=== PATIENT | female | born 1930 | race Caucasian/White ===

== ENCOUNTER → 2017-03-09 | Outpatient (CLI) | payer OTHER, MEDICARE ==
[~2017-03-09] VITALS: Ht 149.9 cm; Wt 67.1 kg
[~2017-03-09] MED LIST: ALDACTONE25 MG PO; ASPIRIN EC81 M1 PO; CALTRATE-600 W1 EACH PO; COLACE100 MG PO; FISH OIL 1,0001 EAC5 PO; HYDROCHLOROTHIA25 M1 PO; LASIX 20 MG TAB20 MG PO; LIDODERM 5%1 PATC1 TRANSDERM; LIDODERM 5%1 PATCH TOP; MIRALAX255 GM PO; MOBIC7.5 MG PO; NAPROSYN500 MG PO; OCUVITE TABLET1 EAC1 PO; OXYCODONE HCL 55 MG PO; OXYCODONE HCL5 M1 PO; OXYCONTIN PO; OXYCONTIN10 M1 PO; OXYCONTIN10 MG PO; PRENATAL COMPL1 EACH PO; PRILOSEC 20 MG20 MG PO; SENOKOT-S1 TA1 PO; VITAMIN D-32000 UNIT PO; VITAMIN D400 UNI1 PO; VOLTAREN GEL 1100 G2 TOP
--- NOTE | ~2017-03-09 | HPC ---
[facility] [place] [address] PAIN MANAGEMENT CONSULTATION Name: GINO GIMENEZ Room #: REG RAFI Simone.#: [id number] Admission: 03/09/17 Attend Phys: Jorgito Rocha MD Discharge: Date of : [birth year] Report #: [id number] THIS REPORT FOR: //name// CC: Klaus Rocha DATE OF SERVICE: 03/09/2017 Followup visit for chronic low back pain with radiculopathy. The patient returns to pain clinic today for a 2-level transforaminal epidural injection. These have been performed intermittently dating back almost 10 or 11 years. We try to be cautious about performing these injections not in a series, but on an as needed basis. She also gets injections prior to major events. She had an injection performed in November prior to a trip to the [facility] and she will now be going to [facility] to attend a wedding of a grandchild. She is hoping to walk down the aisle and the injection will hopefully provide her with the relief necessary to do so. Her last injection provided substantial relief. We will repeat the injection today as before. We reviewed her medications in some detail at last visit. She uses OxyContin 10 mg b.i.d. and oxycodone 5 mg twice a day for breakthrough pain along with Voltaren gel for her shoulders. I renewed those medications for as well. Side effects are well managed. She has some constipation, which is treated easily with [id number]-[id number] laxatives. PHYSICAL EXAMINATION: She is a panda 86-year-old pleasant, alert and oriented. Her blood pressure is 144/63, heart rate 76, BMI 29.9. She is not a fall risk, moves from a sitting to standing position and ambulates with stable gait. She does have a walker and a cane available if needed. She has tenderness across her low back. She has pain that follows the right leg in a radicular pattern all the way to the calf with positive straight leg raising. IMPRESSION: 1. Low back pain with radiculopathy, status post laminectomy, right L4-L5. 2. Management of high risk medication. RECOMMENDATIONS: Repeat 2-level transforaminal epidural injection under fluoroscopic guidance. PROCEDURE: She was taken to the fluoroscopic suite where she was placed prone, skin prepped with ChloraPrep. Skin was anesthetized over the L4-L5 and L5-S1 neural foramen. Triplanar fluoroscopic views were used to help position needles into the neural foramen. Epidurogram achieved both levels with 0.5 mL of omnipaque. This was then followed by 3 mL of 0.5% lidocaine through each needle plus 40 mg of triamcinolone. She tolerated the procedure well. She had a [facility] [address] [place] [address] PAIN MANAGEMENT CONSULTATION Name: GINO GIMENEZ Room #: REG RAFI Lorenzo#: [id number] Admission: 03/09/17 Attend Phys: Jorgito Rocha MD Discharge: Date of : [birth year] Report #: [id number] little bit of weakness in her lower extremity. After the procedure was observed carefully until she was able to bear weight without incident and was discharged. Follow up as needed. I stressed once again the importance of safeguarding these strong medications that she uses for intractable pain. By: 1525 1540 Jorgito Rocha MD /nt
[2017-03-09 10:08] VITALS: BP 144/63
== END | disposition home or self-care (01) ==
LOC: PAIN 06:40
DX: M54.16 Radiculopathy, lumbar region (principal); F11.20 Opioid dependence, uncomplicated; Z98.890 Other specified postprocedural states; Z79.82 Long term (current) use of aspirin; Z88.0 Allergy status to penicillin; Z88.8 Allergy status to other drugs, medicaments and biological substances

== ENCOUNTER → 2017-05-29 | Outpatient (CLI) | payer OTHER, MEDICARE ==
[~2017-05-29] VITALS: Ht 149.9 cm; Wt 69.4 kg
--- NOTE | ~2017-05-29 | HPC ---
[facility] [place] [address] [place] [address] PAIN MANAGEMENT CONSULTATION Name: GINO GIMENEZ Room #: REG FAYESrinivasa Lorenzo#: [id number] Admission: 05/29/17 Attend Phys: Jorgito Rocha MD Discharge: Date of : [birth year] Report #: [id number] THIS REPORT FOR: //name// CC: TIFFANY Rocha DATE OF SERVICE: 05/29/2017 Followup visit for lumbar radiculopathy. The patient returns to pain clinic today for another 2-level transforaminal epidural injection. I performed these injections now for her off and on over the last 10 years, avoiding surgery and also keeping her off of stronger medication for the most part. She uses OxyContin and oxycodone, but we have limited her dose to no more than 30 total mg per day or an ME of 45 underneath the CDC guideline. Although she is 86, she has been on these medicines for years, tolerated some well, has few side effects and she is grateful for the benefit that they provided. I reviewed the available record and she has been on these medications at nearly the same dose since 2007. She has shown no addictive behaviors. She feels that without the medication it would be much more difficult for her to get about and enjoy her life. She was able to go to [place] to attend the wedding of a grandchild and she was thrilled that she was able to walk both down the aisle at the beginning and at the end and enjoy her time there. The injections and the medication play a big role in that. Pain today is typical. It is in her low back. It radiates down her right leg following an L4-L5 and L3-L4 distribution. She scores her pain at a 4 with medication; without, it is 8-9. MEDICATIONS AND ALLERGIES: Reconciled and reviewed. There have been no changes. PHYSICAL EXAMINATION: GENERAL: She is a delightful 86-year-old, sharp and alert. VITAL SIGNS: Blood pressure 160/56, heart rate is 86. BMI is 30.9. MUSCULOSKELETAL: She moves easily independently from a sitting to standing position, walks with a walker. Her gait is stable. She does not appear to be fly risk. She has tenderness and kyphosis across the lumbar spine, where there is limited activity. She has pain in her right knee with osteoarthritis. She intends to have an injection with Dr. Vasquez there. Straight leg raising on the right reproduces a radicular shooting pain into the leg. IMPRESSION: 1. Chronic lumbar radiculopathy, status post laminectomy, right L4-L5 [place] [address] PAIN MANAGEMENT CONSULTATION Name: GINO GIMENEZ Room #: REG RAFI Lorenzo#: [id number] Admission: 05/29/17 Attend Phys: Jorgito Rocha MD Discharge: Date of : [birth year] Report #: [id number] 2. Management of high-risk medication. PLAN: A 2-level transforaminal epidural injection on the right L4-L5 and L5-S1. PROCEDURE: She was taken to the fluoroscopic suite and placed prone. Skin was prepped on the right. Skin was anesthetized over the L4-L5 and L5-S1 neural foramen. Using triplanar fluoroscopic views, I advanced the needle into the neural foramen and 1 mL of Omnipaque was injected. Good spread of dye was observed into the neural foramen at each level. It was then followed at each level by 2 mL of 0.5% lidocaine and 40 mg of triamcinolone. She tolerated the procedure well, was observed for 30 minutes and discharged. Medication renewals were performed today for release at 4 and 8 weeks as well. She now has 3 months of medication. The importance of safeguarding medications for an elderly patient to prevent any diversion in today's climate with the opioid crisis was reviewed. I will see her back in 3 months or so. By: 1510 0139 Jorgito Rocha MD /nt
[2017-05-29 10:55] VITALS: BP 160/56
== END | disposition home or self-care (01) ==
LOC: PAIN 07:21
DX: M54.16 Radiculopathy, lumbar region (principal); Z68.30 Body mass index [BMI] 30.0-30.9, adult; Z98.890 Other specified postprocedural states

== ENCOUNTER → 2017-07-27 | Outpatient (CLI) | payer OTHER, MEDICARE ==
[~2017-07-27] VITALS: Ht 147.3 cm; Wt 65.8 kg
--- NOTE | ~2017-07-27 | HPC ---
[facility] [place] [address] [place] [address] PAIN MANAGEMENT CONSULTATION Name: GINO GIMENEZ Room #: REG Srinivasa Carmen.#: [id number] Admission: 07/27/17 Attend Phys: Jorgito Rocha MD Discharge: Date of : [birth year] Report #: [id number] THIS REPORT FOR: //name// CC: TIFFANY Rocha DATE OF SERVICE: 07/27/2017 Followup visit for lumbar radiculopathy, right lumbosacral distribution. The patient returns to pain clinic today for renewal of medication and also repeat of a 2-level transforaminal injection. She has been receiving transforaminal injections for radiculopathy now for many years. This will be her fourth injection of 2016. This is the typical number of injections she has received over a long period of time. Under terms of an opioid agreement I also provided her with medication, OxyContin 10 mg b.i.d. and oxy IR 5 mg up to twice a day for breakthrough pain. This calculates to a total of 30 mg of hydrocodone, 30 mg of oxycodone or 45 morphine mg equivalents. The most important thing for the patient who benefits from these medicines is that she safeguards them carefully and she will continue to do so. She remains active at 86, but is worried that she is getting more and more debilitated. This has not stopped her from travelling! She [place] between now and the end of the year. PHYSICAL EXAMINATION: GENERAL: She is a sharp 86-year-old pleasant, alert and oriented, moves from sitting to standing position, walks with a walker. VITAL SIGNS: Her blood pressure is 152/59, heart rate 70. MUSCULOSKELETAL: She has tenderness across her low back. There is a small scar there. She has straight leg raising with discomfort located bilaterally, but is worse on the right. IMPRESSION: 1. Chronic lumbar radiculopathy on the right L5-S1, L4-L5 distribution, status post laminectomy. 2. Management of high risk medication. PROCEDURE: Two- level transforaminal epidural injection on the right L4-L5 and L5-S1. DESCRIPTION OF PROCEDURE: The patient was taken to fluoroscopic suite, placed prone, skin prepped with ChloraPrep to the right. Using triplanar fluoroscopic [address] [address] PAIN MANAGEMENT CONSULTATION Name: DILAN GIMENEZSHARONDA Hamilton Room #: REG [facility]#: [id number] Admission: 07/27/17 Attend Phys: Jorgito Rocha MD Discharge: Date of : [birth year] Report #: [id number] views, I advanced the epidural needles 22-gauge 4-1/2 into the neural foramen at L4-L5 and L5-S1. I injected twice Omnipaque to demonstrate spread into the neural foramen. When I have achieved that at each level, I injected each needle with 1.5% lidocaine, 1 mL and 40 mg of triamcinolone. Both needles were removed. She tolerated the procedure well. Total of 80 mg of triamcinolone was used for the injection. She was observed in recovery room for 45 minutes and discharged with a pain score was 0 and a followup visit as needed. Medications were provided for her again with important instructions on safeguarding. <ELECTRONICALLY SIGNED> By: Jorgito Rocha MD 08/02/17 1551 [id number] Jogrito Rocha MD /nt
[2017-07-27 10:12] VITALS: BP 152/59
== END | disposition home or self-care (01) ==
LOC: PAIN 06:37
DX: M54.16 Radiculopathy, lumbar region (principal)

== ENCOUNTER → 2017-11-30 | Outpatient (CLI) | payer OTHER, MEDICARE ==
[~2017-11-30] VITALS: Ht 149.9 cm; Wt 65.1 kg
[~2017-11-30] MED LIST changes: +FOLBIC RF TABL1 EACH PO; +LIDODERM1 EACH TOP; +LINZESS72 MCG PO
--- NOTE | ~2017-11-30 | HPC ---
[facility] [address] [address] PAIN MANAGEMENT CONSULTATION Name: GINO GIMENEZ Room #: REG [facility] Carmen.#: [id number] Admission: 11/30/17 Attend Phys: Jorgito Rocha MD Discharge: Date of : [birth year] Report #: [id number] THIS REPORT FOR: //name// CC: TIFFANY Rocha DATE OF SERVICE: 11/30/2017 DATE OF REGISTRATION: 11/30/2017 Followup visit for chronic right lumbar radiculopathy. The patient returns to pain clinic today with her caregiver. She is doing very well with her. The patient is able to take care of almost all of her activities of daily living, particularly hygiene, dressing and meal preparation. Her caregiver takes her to appointments and assistance around the house with cleaning and others tasks. She is doing well and living independently. She is 87 years old! She is here today for injection. We have provided these injections to keep her pain under control usually no more than 3 injections per year. She has received injections intermittently dating back several years. She received injections 4 times in 2017. This will be her first injection in 2018 and it has been 4 months since her last injection. On physical exam, she is pleasant, alert and oriented, without signs of overmedication or depression or anxiety. She has no evidence of dementia. Her pain score is 4/10. She is able to move independently from sitting to standing position, but does have potential fall risk, using a walker. She has pain across her low back and positive straight leg raising. She is on an opioid agreement with our clinic and we reviewed her medications, OxyContin 10 mg b.i.d. and oxycodone 5/325 two tablets daily for breakthrough pain. This is a total of 30 oxycodone mg a day, which equates to 45 morphine mg equivalents. IMPRESSION: Chronic back pain with radiculopathy, post-laminectomy. Pain is all on the right side and has involved the L4-L5 nerve roots. As she has responded beautifully to 2 level transforaminal injections at L4-L5 and L5-S1, we will continue the same today. PROCEDURE: She was taken to fluoroscopic suite, she was placed prone, skin was prepped with ChloraPrep. Skin was anesthetized over the L4-L5 and L5-S1 neural foramen. Using triplanar fluoroscopic views, I advanced needle into the neural foramen. There was no blood or CSF aspirated. 1 mL of Omnipaque injected demonstrated excellent spread through the epidural space. Through each needle, I injected 1.5 mL of 0.5% lidocaine mixed with 40 mg triamcinolone. She tolerated the procedure well. Pain was reduced in the [place] [address] PAIN MANAGEMENT CONSULTATION Name: GINO GIMENEZ Room #: REG RAFI Lorenzo#: [id number] Admission: 11/30/17 Attend Phys: Jorgito Rocha MD Discharge: Date of : [birth year] Report #: [id number] discharged. Medications were provided for her as described above and I will see her back as needed for medication in 3 months or when another injection is necessary. <ELECTRONICALLY SIGNED> By: Jorgito Rocha MD 12/25/17 1408 [id number] [id number] Jorgito Rocha MD /nt
[2017-11-30 11:43] VITALS: BP 146/71
== END | disposition home or self-care (01) ==
LOC: PAIN 10-19 12:54
DX: M54.16 Radiculopathy, lumbar region (principal); M96.1 Postlaminectomy syndrome, not elsewhere classified; Z79.899 Other long term (current) drug therapy; G89.29 Other chronic pain

== ENCOUNTER → 2018-03-08 | Outpatient (CLI) | payer OTHER, MEDICARE ==
[~2018-03-08] VITALS: Ht 147.3 cm; Wt 66.3 kg
--- NOTE | ~2018-03-08 | HPC ---
[facility] [address] [place] [address] PAIN MANAGEMENT CONSULTATION Name: GINO GIMENEZ Room #: REG [facility] [id number] Admission: 03/08/18 Attend Phys: Jorgito Rocha MD Discharge: Date of : [birth year] Report #: [id number] THIS REPORT FOR: //name// CC: TIFFANY MIX Physician staff Jorgito Rocha DATE OF SERVICE: 03/08/2018 Followup visit for low back pain with radiculopathy, post-laminectomy syndrome. The patient returns to the Pain Clinic for an epidural injection. I provided these for her 3 times a year with good improvement. She reports oftentimes up to 70-80% pain relief. Pain score drops fairly dramatically in the weeks following the injection. Pain score today is a 4. It is a sore, aching tenderness in her tailbone, radiating into both legs, worse on the right than the left. We have used a transforaminal approach, which has been successful. I used 2 levels, L4-L5 and L5-S1. Medication were reviewed and reconciled from the electronic medical record. I do have her on our opioid agreement, which has been signed and we discussed the CDC guidelines. She uses her medications carefully and safeguarded and watched over also by her caregiver, who is with her today in the appointment. She has not fallen in the last 3 months and has not a fall risk, although she does use a walker. She sees Dr. Mindy Bonilla for edema and has aortic stenosis. SOCIAL HISTORY: She denies use of tobacco and alcohol. PHYSICAL EXAMINATION: She is a panda, sharp 87-year-old, moves from sitting to standing position, ambulates without too much difficulty. She has pain across the low back with forward flexion and extension. She needs a walker for stability. She had some trouble getting up on to the treatment table today for the first time. She says there was pain and some weakness in climbing on to the step stool. Deep tendon reflexes are diminished throughout the lower extremities. She has tenderness across her low back where her scar is from previous surgery. IMPRESSION: Post-laminectomy syndrome with radiculopathy. PROCEDURE: Two-level transforaminal L5-S1 and L4-L5 on the right under fluoroscopic guidance. [address] [address] PAIN MANAGEMENT CONSULTATION Name: GINO GIMENEZ Room #: REG [facility]#: [id number] Admission: 03/08/18 Attend Phys: Jorgito Rocha MD Discharge: Date of : [birth year] Report #: [id number] I also provided her with medication for her chronic pain and lumbar spondylosis. The low back pain is aided quite a bit by the medication. I renewed all of her opioid medications under terms of the agreement. Please see electronic medical record. DESCRIPTION OF PROCEDURE: The patient was taken to the fluoroscopy suite, placed prone, skin prepped with ChloraPrep. Skin anesthetized over the L4-L5 and L5-S1 neural foramen. Using triplanar fluoroscopic views, I advanced the needle into the neural foramen. 1 mL of Omnipaque was injected with excellent spread of dye observed at each level. This was then followed at each level by 3 mL of 0.5% lidocaine mixed with 40 mg of triamcinolone. She tolerated the procedure well and was observed for 45 minutes and discharged. Followup visit planned in the Pain Clinic in roughly 3 months. I renewed the CDC guidelines with her, talked again about safeguarding medication before discharge. She was given oxycodone IR 5 mg to be taken twice a day for breakthrough pain. Her total daily dose of oxycodone maximum is 30, which equates with 45 MME under the CDC guideline recommendation of 50. She will continue to manage her constipation with Linzess. No other changes in medication today. By: [id number] Jorgito Rocha MD /nt
[2018-03-08 11:25] VITALS: BP 149/65
== END | disposition home or self-care (01) ==
LOC: PAIN 06:59
DX: M54.16 Radiculopathy, lumbar region (principal); M96.1 Postlaminectomy syndrome, not elsewhere classified; G89.29 Other chronic pain; Z88.0 Allergy status to penicillin; Z88.2 Allergy status to sulfonamides; Z88.8 Allergy status to other drugs, medicaments and biological substances; Z79.82 Long term (current) use of aspirin; Z79.899 Other long term (current) drug therapy; Z79.891 Long term (current) use of opiate analgesic

== ENCOUNTER → 2018-06-07 | Outpatient (CLI) | payer OTHER, MEDICARE ==
[~2018-06-07] VITALS: Ht 149.9 cm; Wt 65.3 kg
--- NOTE | ~2018-06-07 | HPC ---
[facility] [address] PAIN MANAGEMENT CONSULTATION Name: GINO GIMENEZ Room #: [facility] [id number] Admission: 06/07/18 Attend Phys: Jorgito Rocha MD Discharge: Date of : [birth year] Report #: [id number] THIS REPORT FOR: //name// CC: TIFFANY MIX MD Physician staff Jorgito Rocha DATE OF SERVICE: 06/07/2018 Followup visit for chronic low back pain with recent fall and right-sided sacroiliac joint and hip pain. The patient was in the clinic today with family and her daughter listening in over the phone. She has recently fallen. She fell landing on her left side, but has had more increasing pain in the right sacroiliac joint, hip and along the lateral thigh. The fall was fairly severe, but no x-rays were taken. It does not appear that she has suffered any fractures. She has been able to bear weight, but only with a walker. She is definitely a fall risk. She was last seen on 03/08/2018 at which time I performed a 2-level transforaminal epidural injection. This has helped with her post-laminectomy radicular symptoms over many years. She has always received relief that lasts for an extended period of time. She was in consideration of an injection today, but we ended up spending about 30 minutes reassuring her about her other injuries. MEDICATIONS: Reviewed and reconciled. PQRS: Shows that my patient has osteoarthritis of the knees. No rheumatoid arthritis. Her BMI is 29. Blood pressure 123/47, heart rate 71, respirations 16. Pain score without medication is 10, with medication she can reduce this to a very manageable level and is able to function through the day. She is a fall risk, not fallen within the last 1 week. She is on no blood thinners. She is treated for hypertension. She is on an opioid agreement for the medications that I provided, which include OxyContin 10 mg twice daily. Voltaren gel has also been utilized and prescribed and I give her Flector patches today for use for short term use. She is at low risk for addiction. Does not smoke nor use alcohol. PHYSICAL EXAMINATION: She is in his wheelchair. She is pleasant, alert and oriented. She is little worried because of her recent fall. Blood pressure is 123/47, heart rate 71, respirations 16, O2 sat is 100%. She has BMI of 29.1. She moves from sitting to standing, but ambulates with a very slow shuffling [address] [address] PAIN MANAGEMENT CONSULTATION Name: GINO GIMENEZ Room #: REG [facility]#: [id number] Admission: 06/07/18 Attend Phys: Jorgito Rocha MD Discharge: Date of : [birth year] Report #: [id number] gait. She appears unsteady on her feet when turning. Examination of the spine reveals no tenderness high, but in the lumbosacral segment she is tender across the iliac crest region. She is exquisitely tender over the right sacroiliac joint and along the area of the greater trochanter. She has tenderness also in the gluteal region. She has no pain with hip flexion and extension of the leg. No weakness noted. She has some decreased sensation in the left L4-L5 distribution. This is an area where we treated her with epidural injections successfully. IMPRESSION: 1. Chronic low back pain with radiculopathy, post-laminectomy syndrome. 2. Recent fall. 3. Myofascial pain and possible sacroiliac joint dysfunction or sacroiliac joint mediated pain related to the fall. 4. Management of high risk medications under terms of written opioid agreement. We reviewed her medication use with precautions and precaution about safeguarding medication as best possible. PLAN: After much discussion, we elected to hold off on an injection today. We will consider injection in the next 1-2 weeks if she is not improving from her fall. By: [id number] 2038 Jorgito Rocha MD /nt
[2018-06-07 14:21] VITALS: BP 123/47
== END ==
LOC: PAIN 07:11
DX: M54.16 Radiculopathy, lumbar region (principal); M96.1 Postlaminectomy syndrome, not elsewhere classified; M79.1 Myalgia; W19.XXXA Unspecified fall, initial encounter; Z79.891 Long term (current) use of opiate analgesic

== ENCOUNTER → 2018-07-09 | Outpatient (CLI) | payer OTHER, MEDICARE ==
[~2018-07-09] VITALS: Ht 149.9 cm; Wt 67.1 kg
--- NOTE | ~2018-07-09 | HPC ---
[facility] [place] [address] PAIN MANAGEMENT CONSULTATION Name: GINO GIMENEZ Room #: REG [facility] Carmen.#: [id number] Admission: 07/09/18 Attend Phys: Jorgito Rocha MD Discharge: Date of : [birth year] Report #: [id number] THIS REPORT FOR: //name// CC: TIFFANY AVALOS MD Physician staff Jorgito Rocha DATE OF SERVICE: 07/09/2018 Followup visit for chronic low back pain with radiculopathy. The patient returns to Pain Clinic today for her 2-level transforaminal epidural injection. Her last injection was over 4 months ago. This will be her third injection in 2018. We have utilized the transforaminal epidural injections 3-4 times a year along with medication to manage her chronic pain quite effectively. She remains sharp and very independent. Today, she reports her pain intensity is 7/10. PQRS REVIEW: Shows that she has: 1. 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 She follows with Dr. Park. 2. She is small with a BMI of 29.9. 3. Her vital signs are stable. Blood pressure 157/44, heart rate 71. 4. Pain intensity is 7/10. 5. Fall risk: No falls in the last 3 months. She uses a walker and is cautious. 6. She is not on a blood thinner. 7. She is under the treatment for hypertension by Dr. Avalos. 8. She has signed an opioid agreement and has completed an opioid risk tool and is at low risk for addiction. 9. She denies use of tobacco, but drinks alcohol on social occasions. Current medications provided through our clinic include OxyContin 10 mg b.i.d., which she uses effectively without side effect and OxyIR 5 mg for breakthrough pain. Her maximum daily MME is 45. She also uses diclofenac topically; however, the Flector patches are no longer covered and extremely expensive. We talked about using diclofenac gel and this can be ordered and paid for out of pocket through [employer] at about 28-30 dollars per month. PHYSICAL EXAMINATION: Reveals a panda 87-year-old, moves from sitting to standing position, walks cautiously with a walker. She has limited range of motion of the lumbar spine and tenderness across the [place]os[place] [address] PAIN MANAGEMENT CONSULTATION Name: GINO GIMENEZ Room #: REG [facility]#: [id number] Admission: 07/09/18 Attend Phys: Jorgito Rocha MD Discharge: Date of : [birth year] Report #: [id number] there is a small scar. Straight leg raising is mildly positive bilaterally reproducing pain into the L4-L5 distribution, mostly on the right. IMPRESSION: 1. Chronic low back pain with radiculopathy in the right L4-L5. 2. Post-laminectomy syndrome. 3. Management of high risk medications under terms of written opioid agreement. She does not need medication today. PROCEDURE: Two-level transforaminal epidural injection under fluoroscopic guidance. PROCEDURE IN DETAIL: She was taken to fluoroscopic suite, placed prone, skin prepped with ChloraPrep. Skin anesthetized over first the L4-L5 and then the L5-S1 neural foramen. Using triplanar fluoroscopic views, I advanced the needle nicely into the neural foramen. 1 mL of Omnipaque was injected and good spread of dye was observed into the epidural space. I then followed each with an injection of 2 mL of 0.5% lidocaine mixed with 40 mg of triamcinolone at each level. She tolerated the procedure well. Pain was reduced and she was able to ambulate easily out of the clinic without complication. Followup visit is planned for medication in 1-2 months, injections no more than 3-4 per year. She is grateful for the relief. By: [id number] Jorgito Rocha MD /nt
[2018-07-09 10:50] VITALS: BP 157/44
== END | disposition home or self-care (01) ==
LOC: PAIN 07:13
DX: M54.16 Radiculopathy, lumbar region (principal); G89.29 Other chronic pain; M96.1 Postlaminectomy syndrome, not elsewhere classified; M17.12 Unilateral primary osteoarthritis, left knee; I10 Essential (primary) hypertension; Z79.891 Long term (current) use of opiate analgesic; Z88.0 Allergy status to penicillin; Z88.2 Allergy status to sulfonamides; Z88.8 Allergy status to other drugs, medicaments and biological substances; Z79.899 Other long term (current) drug therapy; Z79.82 Long term (current) use of aspirin

== ENCOUNTER → 2018-09-20 | Outpatient (CLI) | payer OTHER, MEDICARE ==
[~2018-09-20] VITALS: Ht 149.9 cm; Wt 66.7 kg
[~2018-09-20] MED LIST changes: +LIDODERM1 EACH TRANSDERM; +MOVANTIK25 MG PO
[2018-09-20 10:45] VITALS: BP 116/53
--- NOTE | 2018-09-20 10:50 | NUR ---
Pain Clinic Assessment: 1. History of Osteoarthritis: KNEES History of Rheumatoid Arthritis: Not Applicable 2. Height: 4 ft. 11 in. 149.9 cm. Weight: 147.0 lb. oz. 66.679 kg. Patient's BMI: 29.7 3. Vital Signs: BP: 116/53 Pulse: 75 Resp: 15 Temp: 02 Sat: 95 ECG Mon: 4. Pain Intensity: 2 5. Fall Risk: Dizziness: N Needs help standing or walking: Y Fallen in the last 3 months: N Fall risk comments: USES WALKER 6. Patient on Blood Thinner: None 7. History of Hypertension: Y 8. Opioid Therapy greater than 6 weeks: Y Opiate Contract Signed: 04/07/16 9. Risk Assessment Tool Provided: low 10. Functional Assessment Tool: 11. Recreational Drug Use: Never Drug Type: Tobacco Use: Never Smoker Tobacco Type: Amount or Packs/day: How Many Years: Alcohol Use: Yes Frequency: Quant:
--- NOTE | 2018-09-21 07:26 | HPC ---
[facility] [place] [address] [place] [address] PAIN MANAGEMENT CONSULTATION Name: GINO GIMENEZ Room #: REG [facility] Lorenzo#: [id number] Admission: 09/20/18 Attend Phys: Maylin Luna Discharge: Date of : [birth year] Report #: [id number] THIS REPORT FOR: //name// CC: Maylin MIX Physician staff DATE OF SERVICE: 09/20/2018 CHIEF COMPLAINT: Chronic low back pain with radiculopathy. HISTORY OF PRESENT ILLNESS: The patient returns to the pain clinic today for a refill of her medications. She tells me that her pain score is 2/10 when she does take her medication. She can definitely tell when they have worn off and her pain does increase. She finds that they are very helpful in keeping her active, though she does complain of significant constipation. She tells me that she has tried several medicines in the past and her Linzess, which she has been using to treat it has been getting very expensive. She is wondering if we had an alternative. The patient also would like an injection, that Dr. Rocha gives her right transforaminals. She tells me that they are very helpful in controlling her pain. Her last one was in June and has slowly worn off. She does get significant relief from the injections, greater than 50% now for 2-1/2 months. The patient would just like a refill of her medications today. ALLERGIES: PENICILLIN, SULFA AND MORPHINE. CURRENT LIST OF MEDICATIONS: Lidoderm patch, OxyIR 5 mg, OxyContin 10 mg twice a day, Voltaren gel up to 4 times a day as needed, Linzess 72 mcg daily, Folbic tablet daily, Lasix 40 mg daily, Colace twice a day, Senokot at bedtime, Prilosec 20 mg daily, vitamin D3 daily, aspirin 81 mg every other day and Caltrate 600 with vitamin D daily. PQRS: 1. The patient has a history of osteoarthritis in her knees and her back. She denies rheumatoid arthritis. 2. Height is 4 feet 11 inches, weight is 147, BMI is 29.7. 3. Vital signs: Blood pressure 116/53, pulse is 75, respirations 14, oxygen sat is 95. 4. Pain score is 2. Fall risk, she denies dizziness, does not need help walking and standing, has not fallen in the last 3 months, but does use a walker. 5. The patient is not on any blood thinners and does take medicines for hypertension. 6. Her opioid therapy is greater than 6 weeks, therefore an opioid signed contract is on the chart. 7. Her risk assessment tool is low and her functional assessment is 29/70. [address] [address] PAIN MANAGEMENT CONSULTATION Name: GINO GIMENEZ Room #: REG [facility] Lorenzo#: [id number] Admission: 09/20/18 Attend Phys: Maylin Luna Discharge: Date of : [birth year] Report #: [id number] 8. Recreational drug use, the patient denies. She does not smoke and she occasionally drinks alcohol. Prescription monitoring system shows that she is filling her medications from Dr. Rocha. There is a drug screen that has been done in the past year on this patient. The patient tells me that she also safeguards her medications. PHYSICAL EXAMINATION: GENERAL: This is a very pleasant 88-year-old female that appears her stated age. She is well-developed, well-nourished. She is alert and orientated and her affect is appropriate. HEENT: Normocephalic, atraumatic. Extraocular eye muscles are intact. Mucous membranes are moist. Hearing is adequate. NECK: No JVD or adenopathy. MUSCULOSKELETAL: She has limited range of motion in her lumbar spine and tenderness in her lumbosacral segment, worse on the left area of her lumbar at the L4-L5 area. Straight leg raising is positive bilateral producing pain in the L4-L5 distribution. The patient rises slowly from sitting to standing using arm rest to stand. Lower extremity strength judged to be 4/5 bilaterally in all major muscle groups. The patient uses a walker at all times. IMPRESSION: 1. Chronic low back pain with radiculopathy in the right L4-L5. 2. Post-laminectomy syndrome. 3. Opioid-induced constipation. 4. Management of high risk medications under terms of written opioid agreement. We reviewed the fact that opiate medications are being used to provide analgesia adequate to support activities of daily living, not attempting to achieve a specific pain score on the 0-10 Visual Analog Scale. The current opiate medications are providing sufficient analgesia to allow the patient to participate in activities of daily living. The patient is not exhibiting any aberrant behavior suggestive of drug diversion. The patient is not having any adverse reactions to medications. The patient is not suffering from daytime somnolence or mental acuity changes. The patient is managing opiate-induced constipation with appropriate oioj-adw-aozdtwz agents and dietary considerations. The patient was counseled on concern for caution with operating a motor vehicle while using opiate medications. A physical exam was performed and the patient's functional status was evaluated. All patients with back pain were advised against the bed rest greater than 4 days and were advised to return to normal activities. Pain score assessment was noted and the treatment plan was reviewed with the patient. All current medications, both prescribed and OTC were reviewed and reconciled on the electronic medical record. Tobacco screening was accomplished and smoking cessation was advised when indicated. BMI was noted and diet/exercise modification was recommended for all patients following outside normal [facility] [address] [address] PAIN MANAGEMENT CONSULTATION Name: GINO GIMENEZ Room #: REG [facility].#: [id number] Admission: 09/20/18 Attend Phys: Maylin Luna Discharge: Date of : [birth year] Report #: [id number] parameters. I reviewed with the patient today their responsibilities to safeguard prescription medications, reviewed their responsibility to utilize medications only as prescribed by the physician. They are to seek and receive pain medications only from 1 physician group ( [facility]). They are to use 1 pharmacy and keep the clinic informed if they change pharmacies. Their responsibilities include making followup visits in a timely fashion and to avoid abrupt discontinuation of medication usage. Their responsibilities further include bringing their medications (bottles from the pharmacy with residual pills) to the visit for possible confirmation of pill counts and the patient understands it is their responsibility to submit to random drug screens to ensure both that the medications prescribed are present, and that no other controlled substances are present. All prescriptions provided today were generated electronically. PLAN: 1. Treatment options were discussed with the patient today. She is in need of a refill of her current medications. Scripts given for her OxyContin 10 mg twice a day, #60 with refills today, 4-week and 8-week; OxyIR 5 mg, #60, to be released 4 and 8-week as well; Lidoderm patch, #30 with 5 additional refills and Movantik 25 mg #30 with 5 additional refills. 2. We discussed the options for an injection. The patient tells me that her transforaminal injection has worn off that she had received in June and would like another one. The patient tells me that she gets good relief from those injections. Appointment made for 09/[address] Rocha to repeat that injection. 3. We discussed the patient's constipation. 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 She has been on opioids for years, has tried Colace, Senokot, Linzess, MiraLax, Dulcolax. The Linzess had been helpful, but the cost is more than $200 a month and the patient feels like she cannot afford that on a monthly basis any longer. We will try Movantik 25 mg for her. Unfortunately, we did not have samples to give her, but a script was given for her for a trial of this medication to try to help with her constipation issues. 4. The patient will be seen next week for her injection and then in 3 months' time period again for her medications as needed. The patient is agreeable with this plan of care. 5. The patient is seen in collaboration today with Dr. Jorgito Rocha. <ELECTRONICALLY SIGNED> By: Maylin Luna 09/21/18 0726 [id number] Maylin Luna /nt
== END ==
LOC: PAIN 07:53
DX: M54.16 Radiculopathy, lumbar region (principal); G89.29 Other chronic pain; M96.1 Postlaminectomy syndrome, not elsewhere classified; Z79.891 Long term (current) use of opiate analgesic

== ENCOUNTER → 2018-10-11 | Outpatient (CLI) | payer OTHER, MEDICARE ==
[~2018-10-11] VITALS: Ht 149.9 cm; Wt 67.9 kg
--- NOTE | ~2018-10-11 | HPC ---
[facility] [address] [address] PAIN MANAGEMENT CONSULTATION Name: GINO GIMENEZ [id number] Admission: 10/11/18 Attend Phys: Jorgito Rocha MD Discharge: Date of : [birth year] Report #: [id number] THIS REPORT FOR: //name// CC: TIFFANY Avalos MD Physician staff Jorgito Rocha DATE OF SERVICE: 10/11/2018 Followup visit for chronic low back pain with radiculopathy. The patient returns to clinic today and has had some changing pain. She rode a stationary bicycle using the arm movements as well for 10 minutes last week. Shortly thereafter she began experiencing pain localized over the sacroiliac joint as well as pain that radiates down her left leg. She would like to continue with physical therapy, but wanted some direction. I think the bicycle is fine. I think she should start slower with fewer minutes and she should probably avoid the use of the back and forth arm movements. She does not have a lot of rotational movement around her lumbar spine and I do not think she is going to gain it through physical therapy. She can use the therapy to help gain strength and also to improve her energy and vitality. She should avoid injuring herself with the exercise. She is on an opioid agreement with our clinic and we provide her with OxyContin 10 mg twice daily and she uses oxycodone for breakthrough pain when the pain is severe one tablet twice a day. She has no significant side effects other than constipation, which has been managed with medication. PHYSICAL EXAMINATION: Today, she is pleasant female, moves from sitting to standing position and walks with antalgic features. She has pain across the low back. She has tenderness to the right. She has straight leg raising on the right reproduces pain into the leg consistent with her chronic radicular symptoms. Pain follows L5 and L4 mostly into the anterior thigh. New findings on her physical exam today include tenderness over the right sacroiliac joint. She has a positive JOAN test. The tenderness is fairly exquisite located in the lower pole of the joint. IMPRESSION: 1. Chronic back pain with radiculopathy, right L4-L5. 2. Post-laminectomy syndrome. 3. Opioid-induced constipation. 4. Right sacroiliac joint following extensive exercise. [address] [address] PAIN MANAGEMENT CONSULTATION Name: GINO GIMENEZ Room #: REG [facility] Bj#: [id number] Admission: 10/11/18 Attend Phys: Jorgito Rocha MD Discharge: Date of : [birth year] Report #: [id number] PLAN: 1. Sacroiliac joint on the right under fluoroscopic guidance with 40 mg of triamcinolone. 2. A 2-level transforaminal epidural injection at L4-L5 and L5-S1 using 20 mg of triamcinolone and 0.5% lidocaine at each level. PROCEDURE: 1. Sacroiliac joint injection. She was taken to fluoroscopic suite, placed prone, skin prepped with ChloraPrep. Skin anesthetized over the right sacroiliac joint. A 22-gauge needle was advanced in the posterior inferior capsule and 1 mL of Omnipaque injected to demonstrate a ragged arthrogram. 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 This was then followed by 2 mL of 0.5% lidocaine mixed with 40 mg of triamcinolone. Needle was removed. She was then repositioned, the C-arm was repositioned as well. Using triplanar fluoroscopic views after prepping the area, I anesthetized the skin and placed 2 needles within the neural foramen. 1 mL of Omnipaque injected through each needle. Good spread of dye was observed along the nerve root and extending slightly into the neural foramen and epidural space. This was followed by 1.5 mL of 0.5% lidocaine and 20 mg of triamcinolone at each level. She tolerated the procedures well. She was observed in the recovery room for 30 minutes and was discharged with improvement in pain score. Follow up as needed. No new medications were written on this visit. She has been seen previously separately for medication management. By: [id number] Jorgito Rocha MD /nt
[2018-10-11 12:54] VITALS: BP 156/63
--- NOTE | 2018-10-11 13:06 | NUR ---
Pain Clinic Assessment: 1. History of Osteoarthritis: KNEES History of Rheumatoid Arthritis: Not Applicable 2. Height: 4 ft. 11 in. 149.9 cm. Weight: 149.6 lb. oz. 67.858 kg. Patient's BMI: 30.2 3. Vital Signs: BP: 156/63 Pulse: 74 Resp: 16 Temp: 02 Sat: 98 ECG Mon: 4. Pain Intensity: 2-3 5. Fall Risk: Dizziness: N Needs help standing or walking: N Fallen in the last 3 months: N Fall risk comments: USES WALKER 6. Patient on Blood Thinner: None 7. History of Hypertension: Y 8. Opioid Therapy greater than 6 weeks: Y Opiate Contract Signed: 04/07/16 9. Risk Assessment Tool Provided: low 10. Functional Assessment Tool: 11. Recreational Drug Use: Never Drug Type: Tobacco Use: Never Smoker Tobacco Type: Amount or Packs/day: How Many Years: Alcohol Use: Yes Frequency: Special Occasions Quant: 1-2
== END | disposition home or self-care (01) ==
LOC: PAIN 07:15
DX: M54.16 Radiculopathy, lumbar region (principal); M53.3 Sacrococcygeal disorders, not elsewhere classified; G89.29 Other chronic pain; M96.1 Postlaminectomy syndrome, not elsewhere classified; K59.09 Other constipation; Z88.0 Allergy status to penicillin; Z88.2 Allergy status to sulfonamides; Z88.8 Allergy status to other drugs, medicaments and biological substances; Z79.82 Long term (current) use of aspirin; Z79.899 Other long term (current) drug therapy; Z79.891 Long term (current) use of opiate analgesic; Z98.890 Other specified postprocedural states
CPT/HCPCS: 64483; 64484; G0260

== ENCOUNTER → 2018-12-24 | Outpatient (CLI) | payer OTHER, MEDICARE ==
[~2018-12-24] VITALS: Ht 149.9 cm; Wt 64.2 kg
--- NOTE | ~2018-12-24 | HPC ---
[facility] [address] [place] [address] PAIN MANAGEMENT CONSULTATION Name: GINO GIMENEZ [facility] [id number] Admission: 12/24/18 ������������������ Attend Phys: Jorgito Rocha MD Discharge: ������������������ Date of : [birth year] Report #: [id number] THIS REPORT FOR: //name// CC: TIFFANY Avalos MD Physician staff Jorgito Rocha DATE OF SERVICE: 12/24/2018 Followup visit for chronic low back pain with right lumbar radiculopathy and sacroiliitis. The patient returns to pain clinic today in a 3-month followup. She had a really nice response to the injection performed at last visit. I provided about 30-40 mg of triamcinolone into each of both the L4-L5 and the L5-S1 neural foramen as well as fluoroscopically guided sacroiliac joint. She said that she had excellent pain relief for several weeks. The pain is now returning and she would like to repeat the injection. We provide injections for her about 4 times a year. At last visit, I had written for physical therapy with bicycle beginning with very slow RPMs, but she was unable to make headway with that. Today, we discussed importance of walking. She takes her meals 3 times a day by walking to the dining room. She is also on her feet multiple times for other events including playing bridge! She is remarkably bright for 88 years of age and still plays a mean hand of bridge. When the pain becomes severe this affects all of her activities, both physical and mental, and she is here today for an injection. She is opioid tolerant and has been on opioid medication for over 10 years, tolerating it very well. She uses oxycodone and OxyContin. Her average daily MME is 45. She denies side effect other than constipation and has found Mobic to be quite helpful for the constipation that she has. She is grateful for the pain relief and carefully safeguards her medication. She has a caregiver who echos these issues as well. Additional PQRS issues: She is a fall risk and uses a walker, but has not fallen in the last 3 months. She denies use of tobacco or alcohol. She is on no blood thinning medications. All medications were reviewed and reconciled. She takes Lasix, which I presume is for mild heart failure. She denies shortness of breath or chest pain. All medications have been reviewed and reconciled. She is not hypertensive. PHYSICAL EXAMINATION: She is a panda 88-year-old. Blood pressure 159/75, [address] [address] PAIN MANAGEMENT CONSULTATION Name: GINO GIMENEZ Room #: REG [facility]#: [id number] Admission: 12/24/18 ������������������ Attend Phys: Jorgito Rocha MD Discharge: ������������������ Date of : [birth year] Report #: [id number] heart rate is 73, BMI 28.6. She can independently move from sitting to standing. She uses a walker mostly for balance, does not lean heavily upon it. She can walk the length of the hallway and back without shortness of breath, dyspnea; however, she has pain radiating into the right hip and down the right leg in a dermatomal distribution. She has exquisite tenderness over the sacroiliac joint on the right. This is worsened with flexion, extension and she has a positive JOAN. IMPRESSION: 1. Chronic low back pain with radiculopathy on the right involving L5-S1 and L4-L5. 2. Post-laminectomy syndrome. 3. Opioid-induced constipation, well treated with Movantik. 4. Right sacroiliac inflammation with sacroiliitis. 5. Management of high risk medications under terms of written opioid agreement. PLAN: 1. I renewed her oxycodone with important instructions on safeguarding. There are no unexpected entries in the prescription drug monitoring program information. 2. Transforaminal epidural injection at L4-L5 and L5-S1 on the right and right sacroiliac injection under fluoroscopic guidance. PROCEDURE: She was taken to fluoroscopic suite. She was placed prone, skin prepped with ChloraPrep. The skin anesthetized first over the L4-L5 and then L5-S1 neural foramen. Using triplanar fluoroscopic views, I advanced the needle into the neural foramen. A 0.25 mL of Omnipaque was injected into the upper needle and good epidurogram was achieved. I had to reposition the needle 3 times due to vascular uptake in the L5-S1, but then obtained good spread along the L5 nerve root. I injected each needle with about 35 mg of triamcinolone along with 1.5 mL of 0.5% lidocaine. Harrison were removed. The patient was repositioned as well as the C-arm. Skin was anesthetized over the right sacroiliac joint. A 22-gauge Tuohy epidural needle was advanced into the sacroiliac joint using radiographic guidance. After negative aspiration, I injected a total of 25 mg of triamcinolone along with 2 mL of 0.5% lidocaine. She tolerated the procedure well and was taken to the recovery room for observation. Her pain score was 0 at discharge. Follow up as needed. Medications renewed. ��������������������������������������������� ���������������������������������������� By: ��������������������������������������������� [id number] Jorgito Rocha MD /nt
[2018-12-24 10:23] VITALS: BP 159/75
--- NOTE | 2018-12-24 10:30 | NUR ---
Pain Clinic Assessment: 1. History of Osteoarthritis: KNEES History of Rheumatoid Arthritis: Not Applicable 2. Height: 4 ft. 11 in. 149.9 cm. Weight: 141.6 lb. oz. 64.229 kg. Patient's BMI: 28.6 3. Vital Signs: BP: 159/75 Pulse: 73 Resp: 14 Temp: 02 Sat: 98 ECG Mon: 4. Pain Intensity: 3 5. Fall Risk: Dizziness: N Needs help standing or walking: Y Fallen in the last 3 months: N Fall risk comments: USES WALKER 6. Patient on Blood Thinner: None 7. History of Hypertension: Y 8. Opioid Therapy greater than 6 weeks: Y Opiate Contract Signed: 04/07/16 9. Risk Assessment Tool Provided: low-0 10. Functional Assessment Tool: 11. Recreational Drug Use: Never Drug Type: Tobacco Use: Never Smoker Tobacco Type: Amount or Packs/day: How Many Years: Alcohol Use: Yes Frequency: Quant:
== END | disposition home or self-care (01) ==
LOC: PAIN 06:51
DX: M54.16 Radiculopathy, lumbar region (principal); M53.3 Sacrococcygeal disorders, not elsewhere classified; M96.1 Postlaminectomy syndrome, not elsewhere classified; G89.29 Other chronic pain; Z79.891 Long term (current) use of opiate analgesic; Z98.890 Other specified postprocedural states; Z88.0 Allergy status to penicillin; Z88.2 Allergy status to sulfonamides; Z88.6 Allergy status to analgesic agent; Z79.82 Long term (current) use of aspirin; Z79.899 Other long term (current) drug therapy
CPT/HCPCS: 64483; 64484; G0260

== ENCOUNTER → 2019-01-24 | Outpatient (CLI) | payer OTHER, MEDICARE ==
[~2019-01-24] VITALS: Ht 149.9 cm; Wt 65.9 kg
--- NOTE | ~2019-01-24 | HPC ---
[facility] [place] [place] [address] PAIN MANAGEMENT CONSULTATION Name: GINO GIMENEZ Room #: REG Srinivasa Simone.#: [id number] Admission: 01/24/19 ������������������ Attend Phys: Jorgito Rocha MD Discharge: ������������������ Date of : [birth year] Report #: [id number] THIS REPORT FOR: //name// CC: TIFFANY Avalos Physician staff Jorgito Rocha DATE OF SERVICE: 01/24/2019 Followup visit for right sacroiliac joint pain. The patient returns to the pain clinic today for 25-minute consultation visit. She is here with her caregiver and we also called up and spoke with her daughter, Ilsa, who was involved in the discussion. She has always responded fairly well to injections. More recently, she has had pain that is localized around the sacroiliac joint and I have taken to injecting that area as well. She is doing fairly well after her last treatment in the clinic, which was on 12/24/2018. About 2-3 weeks ago, she started getting very severe pain first thing in the morning when she gets up in her low back and it is in the sacroiliac joint region. It is well localized. Her caregiver put an X directly over the right sacroiliac joint. It radiates a little bit down into the hip, but not far and does not act like radiculopathy. It seems more mechanical in nature. She can only find a certain position or two that is comfortable. After she uses ice for a period of time and takes her morning medications, she can generally start to loosen up and by the time noon comes the pain is practically gone! This sounds very much like a mechanical problem, not a neuropathic one. PHYSICAL EXAMINATION: Today, she is pleasant, alert and oriented as usual. She is 4 feet 11 inches, 145 pounds and BMI 29.3. Blood pressure 139/66, heart rate 83 and respirations 16. Today, her pain is 0. She is able to independently move from sitting to standing position: She walks carefully a few steps to the door and back without her walker. Her gait is unstable without the walker and she would be a fall risk. She has exquisite tenderness over the sacroiliac joint, but today, this afternoon manifests no other symptoms. PQRS continuation, she is not on a blood thinner. She has a history of hypertension and is treated with medication. All of medications reviewed and reconciled. She is taking an opioid medication under my direction, OxyContin 10 mg b.i.d. and OxyIR 5 mg twice a day as needed for breakthrough pain. PLAN: 1. Voltaren gel called in to be applied to the area of the sacroiliac joint [address] [address] PAIN MANAGEMENT CONSULTATION Name: DILAN GIMENEZSHARONDA Hamilton Room #: REG RAFI Lorenzo#: [id number] Admission: 01/24/19 ������������������ Attend Phys: Jorgito Rocha MD Discharge: ������������������ Date of : [birth year] Report #: [id number] morning and at bedtime. 2. Consider repeating the injection in the future, but she has had one just recently and I would like to hold off on another injection. 3. Try both heat and ice. Both can be helpful. 4. Consider physical therapy for evaluation of modalities treatment for sacroiliac joint pain. Orders were written for her facility. 5. Follow up in the pain clinic by phone. She has my personal number and will call me in 1 week. ��������������������������������������������� ���������������������������������������� By: ��������������������������������������������� [id number] Jorgito Rocha MD /nt
[2019-01-24 14:45] VITALS: BP 139/66
--- NOTE | 2019-01-24 15:09 | NUR ---
Pain Clinic Assessment: 1. History of Osteoarthritis: KNEES History of Rheumatoid Arthritis: Not Applicable 2. Height: 4 ft. 11 in. 149.9 cm. Weight: 145.2 lb. oz. 65.862 kg. Patient's BMI: 29.3 3. Vital Signs: BP: 139/66 Pulse: 83 Resp: 16 Temp: 02 Sat: 97 ECG Mon: 4. Pain Intensity: 10 5. Fall Risk: Dizziness: N Needs help standing or walking: Y Fallen in the last 3 months: N Fall risk comments: USES WALKER 6. Patient on Blood Thinner: None 7. History of Hypertension: Y 8. Opioid Therapy greater than 6 weeks: Y Opiate Contract Signed: 04/07/16 9. Risk Assessment Tool Provided: low-0 10. Functional Assessment Tool: 11. Recreational Drug Use: Never Drug Type: Tobacco Use: Never Smoker Tobacco Type: Amount or Packs/day: How Many Years: Alcohol Use: Yes Frequency: Quant:
== END ==
LOC: PAIN 06:56
DX: M53.3 Sacrococcygeal disorders, not elsewhere classified (principal); Z79.899 Other long term (current) drug therapy

== ENCOUNTER → 2019-02-21 | Outpatient (CLI) | payer OTHER, MEDICARE ==
[~2019-02-21] VITALS: Ht 149.9 cm; Wt 63.9 kg
--- NOTE | ~2019-02-21 | HPC ---
[facility] [place] [address] [address] PAIN MANAGEMENT CONSULTATION Name: GINO GIMENEZ [facility] [id number] Admission: 02/21/19 ������������������ Attend Phys: Jorgito Rocha MD Discharge: ������������������ Date of : [birth year] Report #: [id number] THIS REPORT FOR: //name// CC: TIFFANY MIX Physician staff Jorgito Rocha DATE OF SERVICE: 02/21/2019 Followup visit for chronic low back pain. The patient is here today in followup. She is doing well. She scores her pain as a 0! This may be due to simple tincture of time. She was in quite a bit of pain at last visit, which we thought was sacroiliac mechanism. She has not changed her medication. I ordered physical therapy, but she did not undergo it. On PQRS today, she scores her pain as 0. She has diffuse osteoarthritis involving knees. Her BMI is 28. She is a fall risk and needs help standing and walking, using a walker. She is on no blood thinner, but treats for hypertension with medication provided by her primary care physician. All of her medications were reviewed and reconciled. She is on an opioid agreement, taking OxyContin 10 mg b.i.d. as well as OxyIR 5 mg up to 2 times a day for breakthrough pain. She signed her agreement many years ago and it was renewed in 2015. She is at low risk for addiction by the opioid risk tool. She denies tobacco and enjoys an occasional alcoholic beverage. IMPRESSION: Chronic intractable low back pain. She is doing reasonably well today. I have renewed her medications to carry her through April. At that time, we will re-evaluate. Injections will be provided for her only as needed. ��������������������������������������������� ���������������������������������������� By: ��������������������������������������������� [id number] Jorgito Rocha MD /nt
[2019-02-21 15:07] VITALS: BP 136/69
--- NOTE | 2019-02-21 15:34 | NUR ---
Pain Clinic Assessment: 1. History of Osteoarthritis: KNEES History of Rheumatoid Arthritis: Not Applicable 2. Height: 4 ft. 11 in. 149.9 cm. Weight: 140.8 lb. oz. 63.866 kg. Patient's BMI: 28.4 3. Vital Signs: BP: 136/69 Pulse: 83 Resp: 20 Temp: 02 Sat: 98 ECG Mon: 4. Pain Intensity: 0 5. Fall Risk: Dizziness: N Needs help standing or walking: Y Fallen in the last 3 months: N Fall risk comments: USES WALKER 6. Patient on Blood Thinner: None 7. History of Hypertension: Y 8. Opioid Therapy greater than 6 weeks: Y Opiate Contract Signed: 04/07/16 9. Risk Assessment Tool Provided: low-0 10. Functional Assessment Tool: 11. Recreational Drug Use: Never Drug Type: Tobacco Use: Never Smoker Tobacco Type: Amount or Packs/day: How Many Years: Alcohol Use: Yes Frequency: Weekly Quant:
== END ==
LOC: PAIN 07:02
DX: M54.5 Low back pain (principal); G89.29 Other chronic pain

== ENCOUNTER → 2019-05-30 | Outpatient (CLI) | payer OTHER, MEDICARE ==
[~2019-05-30] VITALS: Ht 149.9 cm; Wt 66.3 kg
[~2019-05-30] MED LIST changes: +LEXAPRO 10 MG T10 M1 PO; +LEXAPRO20 MG PO; +SPIRONOLACTONE25 M1 PO
--- NOTE | ~2019-05-30 | HPC ---
[facility] [address] [place] [address] [place] [address] PAIN MANAGEMENT CONSULTATION Name: GINO GIMENEZ Room #: REG [facility].#: [id number] Admission: 05/30/19 ������������������ Attend Phys: Jorgito Rocha MD Discharge: ������������������ Date of : [birth year] Report #: [id number] THIS REPORT FOR: //name// CC: TIFFANY MIX MD Physician staff Jorgito Rocha DATE OF SERVICE: 05/30/2019 Followup visit for chronic low back pain with radiculopathy and management of high risk medications under terms of written opioid agreement This is a followup visit for patient. She is here today for her medication renewal and also for 2-level transforaminal epidural injection. She has done well with these injections over the course of many years and there have been no complications. It tends to provide her with several months of good pain relief. Her last injections were in December. She has been on opioids long enough that she is quite tolerant to their effect, but grateful for the pain relief that they provide. OxyContin 10 mg twice daily, oxycodone 5 mg twice daily, comes to a total of 30 mg or 45 morphine milligram equivalents. She denies side effects. She carefully safeguards her medication. She has a caregiver Nick who also helps her oversee her medications. PQRS REVIEW: 1. History of osteoarthritis of the knees primarily. 2. BMI is 29.5. 3. Vital signs: Blood pressure 158/59, heart rate 64, O2 sat 100% on room air. 4. Pain intensity 12/26. 5. She is at fall risk and needs help standing and walking and uses a walker. She has not fallen in the last 3 months. 6. She is on no blood thinner. 7. Denies hypertension. 8. She is on an opioid agreement last signed in 2015. We reviewed the importance of safeguarding medications at each visit. She denies side effects and is grateful for the improvement in pain and function. 9. She is at low risk for addiction 0 on the opioid risk tool. 10. Functional assessment score is 29. 11. Denies tobacco, drinks alcohol occasionally in social setting. It should be noted that her son, Dl was 63 and was involved in a serious motor vehicle accident in [place]. He was hospitalized for many weeks and then was in rehab for 2 months. He is now back home. She had a lot of stress during the time that he was hospitalized. [address] [address] PAIN MANAGEMENT CONSULTATION Name: GINO GIMENEZ [id number] Admission: 05/30/19 ������������������ Attend Phys: Jorgito Rocha MD Discharge: ������������������ Date of : [birth year] Report #: [id number] PHYSICAL EXAMINATION: VITAL SIGNS: As noted, she is pleasant, an 88-year-old, alert and oriented. She has no difficulty moving, standing position, but walks with a walker. She is stable with a walker, but unstable without. CHEST: Clear to auscultation. CARDIAC: Rhythm is regular. MUSCULOSKELETAL: Reveals tenderness across the low back. She has positive straight leg raising in the right leg following an L4-L5 distribution. We have been splitting medication and injecting her two foramen over the course of the last several years with good improvement. PLAN: I will continue the same today given her past success. Medications were renewed for her for a total of 3 months. We did release 1 prescription for her last week and we have accounted for that in her release dates. PROCEDURE: A 2-level transforaminal epidural injection at L4-L5 and L5-S1 under fluoroscopic guidance. PROCEDURE: She was taken to fluoroscopic suite for treatment, placed prone, skin prepped with ChloraPrep. Skin anesthetized over the right L4-L5 and L5-S1 neural foramen. Using triplanar fluoroscopic views, I advanced needles into the neural foramen at each level. A 0.25 mL of Omnipaque was injected at each level. Good spread of dye was observed in the epidural space, was followed then by 2 mL of 0.5% lidocaine mixed with 4 mg of dexamethasone at each level. She tolerated the procedure well. There were no complications. She was taken to recovery room for observation was discharged without difficulty. Followup visit planned as needed. ��������������������������������������������� ���������������������������������������� By: ��������������������������������������������� [id number] Jorgito Rocha MD /nt
[2019-05-30 11:16] VITALS: BP 158/59
--- NOTE | 2019-05-30 11:39 | NUR ---
Pain Clinic Assessment: 1. History of Osteoarthritis: KNEES History of Rheumatoid Arthritis: Not Applicable 2. Height: 4 ft. 11 in. 149.9 cm. Weight: 146.2 lb. oz. 66.316 kg. Patient's BMI: 29.5 3. Vital Signs: BP: 158/59 Pulse: 74 Resp: 18 Temp: 02 Sat: 100 ECG Mon: 4. Pain Intensity: 4 5. Fall Risk: Dizziness: N Needs help standing or walking: Y Fallen in the last 3 months: N Fall risk comments: USES WALKER 6. Patient on Blood Thinner: None 7. History of Hypertension: Y 8. Opioid Therapy greater than 6 weeks: Y Opiate Contract Signed: 04/07/16 9. Risk Assessment Tool Provided: low-0 10. Functional Assessment Tool: 11. Recreational Drug Use: Never Drug Type: Tobacco Use: Never Smoker Tobacco Type: Amount or Packs/day: How Many Years: Alcohol Use: Yes Frequency: Quant:
== END | disposition home or self-care (01) ==
LOC: PAIN 05-23 10:24
DX: M54.16 Radiculopathy, lumbar region (principal); G89.29 Other chronic pain; Z79.891 Long term (current) use of opiate analgesic; Z88.0 Allergy status to penicillin; Z88.2 Allergy status to sulfonamides; Z88.8 Allergy status to other drugs, medicaments and biological substances; Z79.82 Long term (current) use of aspirin; Z79.899 Other long term (current) drug therapy; Z98.890 Other specified postprocedural states

== ENCOUNTER 2019-06-25 08:21 | Emergency (ER) | payer OTHER, MEDICARE ==
[~2019-06-25] VITALS: Ht 147.3 cm; Wt 66.2 kg
--- NOTE | ~2019-06-25 | EMS ---
[address] [address] EMS Patient Care Report Name: GINO GIMENEZ Room #: REG CHLOE Lorenzo#: [id number] Admission: 06/25/19 Attend Phys: Discharge: Date of : [birth year] Report #: [id number] THIS REPORT FOR: //name// Report Transmitted: 06/25/2019 10:20 EMS Care Summary [facility] Incident [id number] @ 06/25/2019 07:40 Incident Location [address] [place] [address] Patient GINO GIMENEZ Female, 88 Years 1930 Patient Address [address] [place] [address] Patient History Hypertension,Hyperlipidemia,Fibromyalgia,Chronic Kidney Disease,Back Pain (Chronic), Patient Allergies Penicillin allergy,Morphine, Patient Medications Docusate Sodium, Ascorbic Acid, Naproxen, Potassium, Omeprazole, Oxycodone, ASA, Calcium, Lidocaine, Lasix, Cyanocobalamin Co57, Chief Complaint "Her knees hurt after a fall" Disposition Transported No Lights/[place] Dispatch Reason Sick Person Transported To [facility] Narrative [address] [address] EMS Patient Care Report Name: GINO GIMENEZ Room #: REG Simone#: [id number] Admission: 06/25/19 Attend Phys: Discharge: Date of : [birth year] Report #: [id number] upon our arrival located pt lying in bed with FD and gas tender at her side. pt explained last night about 2300 she was seated on a stool at the end of her bed when she "fell asleep accidently" and "fell on my knees." pt was helped from the floor by another aide and placed in bed. she awoke today around 0500, utilized the restroom, and was again helped back to bed. with continued discomfort the pt summoned her private aide who came and ultimately summoned 911 on the pt's behalf. pt c/o bilateral knee pain. pt denied striking her head during fall or loss of consciousness during fall. pt denied any additional complaint of pain or injury. v/s obtained. pt requested assistance to the restroom. pt was assisted to her walker/w/c and wheeled to nearby restroom. pt was wheeled afterwards to nearby EMS cot where she was secured in a POC with appropriate seatbelts applied. pt talkative, pleasant during transport without further complaint in NAD. report called to ED without incident. upon arrival report given to ED RN/physician without incident. Initial Vitals @08:10P: 88,R: 14,BP: 143/97,Pain: 8/10,GCS: 15,SpO2: 98,Revised Trauma: 12, @PTAP: 77,R: 14,BP: 160/80,GCS: 15,SpO2: 98,Revised Trauma: 12, Assessments @07:55MENTAL:Person Oriented,Time Oriented,Place Oriented,Event Oriented,SKIN:HEENT:LUNG SOUNDS:ABDOMEN:PELVIS//GI:EXTREMITIES:Left Leg: Other,Right Leg: Other,Left Leg: Edema,Right Leg: Edema,PULSE:NEURO: Impression Extremity Pain Timeline MANAGER OF EXHIBITIONS AND COLLECTIONS,BP: 160/80 M,PULSE: 77,RR: 14 R,SPO2: 98 Ox,ETCO2: ,BG: ,PAIN: ,GCS: 15, 07:39,Call Received 07:39,Psap Call 07:40,Dispatched 07:41,En Route 07:48,On Scene 07:52,At Patient 08:10,BP: 143/97 M,PULSE: 88,RR: 14 R,SPO2: 98 Ox,ETCO2: ,BG: ,PAIN: 8,GCS: 15, 08:11,Depart Scene 08:20,At Destination 08:36,Call Closed Disclaimer v1.1 Copyright 2019 [employer] This EMS Care Summary contains data elements from the applicable legal record (which may be displayed differently). It is designed to provide pertinent information for the following purposes: continuity of care, clinical quality, [address] [address] EMS Patient Care Report Name: GINO GIMENEZ Room #: REG CHLOE Lorenzo#: [id number] Admission: 06/25/19 Attend Phys: Discharge: Date of : [birth year] Report #: [id number] and state data reporting. The complete legal record is available to ED staff and administrators of the receiving hospital in [employer]'s Patient Tracker. All data is provided "as is."
[2019-06-25] MEDS ORDERED: PRESERVISION A1 EAC2 PO (09:12)
[2019-06-25] MEDS ORDERED: THERA TEARS1 EAC1 OPHTHALMIC (09:13)
[2019-06-25] MEDS ORDERED: ZANAFLEX4 MG PO (09:14)
[2019-06-25] MEDS ORDERED: ALEVE220 MG PO (09:16)
[2019-06-25 10:56] VITALS: BP 129/57
== END 2019-06-25 11:29 | disposition home or self-care (01) ==
LOC: ER 08:21
DX: M25.562 Pain in left knee (principal); M25.561 Pain in right knee; M25.552 Pain in left hip; Z90.49 Acquired absence of other specified parts of digestive tract; Z90.710 Acquired absence of both cervix and uterus; Z88.0 Allergy status to penicillin; Z88.2 Allergy status to sulfonamides; Z88.6 Allergy status to analgesic agent

== ENCOUNTER → 2019-08-07 | Outpatient (CLI) | payer OTHER, MEDICARE ==
[~2019-08-07] VITALS: Ht 149.9 cm; Wt 67.2 kg
[~2019-08-07] MED LIST changes: +ALEVE220 MG PO; +OXYCODONE HCL E10 MG PO; +PRESERVISION A1 EAC2 PO; +THERA TEARS1 EAC1 OPHTHALMIC; +ZANAFLEX4 MG PO
[2019-08-07 13:03] VITALS: BP 137/56
--- NOTE | 2019-08-07 13:32 | NUR ---
Pain Clinic Assessment: 1. History of Osteoarthritis: KNEES History of Rheumatoid Arthritis: Not Applicable 2. Height: 4 ft. 11 in. 149.9 cm. Weight: 148.2 lb. oz. 67.223 kg. Patient's BMI: 29.9 3. Vital Signs: BP: 137/56 Pulse: 74 Resp: 14 Temp: 02 Sat: 100 ECG Mon: 4. Pain Intensity: 2 5. Fall Risk: Dizziness: N Needs help standing or walking: Y Fallen in the last 3 months: N Fall risk comments: USES WALKER 6. Patient on Blood Thinner: None 7. History of Hypertension: Y 8. Opioid Therapy greater than 6 weeks: Y Opiate Contract Signed: 04/07/16 9. Risk Assessment Tool Provided: low-0 10. Functional Assessment Tool: 11. Recreational Drug Use: Never Drug Type: Tobacco Use: Never Smoker Tobacco Type: Amount or Packs/day: How Many Years: Alcohol Use: Yes Frequency: Quant:
--- NOTE | 2019-08-08 10:06 | HPC ---
[facility] [address] [place] [address] PAIN MANAGEMENT CONSULTATION Name: GINO GIMENEZ Room #: REG [facility] Simone.#: [id number] Admission: 08/07/19 Attend Phys: Maylin Luna Discharge: Date of : [birth year] Report #: [id number] THIS REPORT FOR: //name// CC: Maylin Luna [facility] unknown DATE OF SERVICE: 08/07/2019 CHIEF COMPLAINT: Chronic low back pain with radiculopathy. HISTORY OF PRESENT ILLNESS: This is a very pleasant 88-year-old female, who returns to the pain clinic today for refill of her medications prior to going out of town for the . She reports a pain score 2/10. She is doing extremely well. She reports she has minimal pain in her low back and her right thigh. It was flared after a recent fall in June, but has quieted down again. She tells me that she slipped off a bench and did go to the Emergency Room, but did not have any significant injuries. She reports her pain as an aching soreness that is worse with walking and ambulation. Her medications are beneficial as well as ice. The patient reports that she did have bilateral knee injections in June by Dr. Park that were beneficial in helping control some of that pain. He informed her she was unable to have any type of steroid injection until after 09/28/2019 due to her steroid exposure this year. ALLERGIES: PENICILLIN, SULFA and MORPHINE. MEDICATIONS: Aleve p.r.n., tizanidine 4 mg t.i.d. p.r.n., TheraTears, PreserVision, Lexapro 10 mg daily, spironolactone 25 mg daily, Movantik 25 mg every other day, Lidoderm patch p.r.n., OxyContin 10 mg b.i.d., OxyIR 5 mg daily, B12, Lasix 40 mg daily, Colace as needed, Prilosec 20 mg daily, vitamin D, aspirin and calcium. PQRS: 1. She has a history of osteoarthritis in her bilateral knees. Denies any rheumatoid arthritis. 2. Height is 4 feet 11 inches, weight is 148, BMI is 29. 3. Vital signs, 137/56, pulse is 74, respirations 14, oxygen sat is 100. 4. Pain score is 2/10. 5. Denies dizziness. Does use a walker at all times. Has fallen in the last month. 6. The patient is not on any blood thinners, but does take medicine for hypertension. 7. Opioid therapy is greater than 6 weeks; therefore, an opioid signed contract is on the chart. Risk assessment tool is low. Functional assessment is . [address] [address] PAIN MANAGEMENT CONSULTATION Name: GINO GIMENEZ [id number] Admission: 08/07/19 Attend Phys: Maylin Luna Discharge: Date of : [birth year] Report #: [id number] 8. Recreational drug use, she denies. She is not a smoker and occasionally drinks alcohol. According to the prescription monitoring system, the patient is filling appropriately. She is not due to fill her medications until 08/21/2019 that is the day she returns from her trip to [place]. She is here today to obtain her prescriptions, but not to fill early. The patient tells me she does safeguard her meds at all times. PHYSICAL EXAMINATION: GENERAL: This is a very pleasant and alert and orientated 88-year-old who rates her pain at 2/10 today. HEENT: Normocephalic, atraumatic. Extraocular eye muscles are intact. Mucous membranes are moist. MUSCULOSKELETAL: She has tenderness in her lumbosacral area. She has positive straight leg raising of the right leg following the L4-L5 dermatomal distribution. She has tenderness in the bilateral knees. It is increased with ambulation. ASSESSMENT: 1. Chronic intractable low back pain. 2. Right sacroiliac joint pain. 3. Lumbar radiculopathy. We reviewed the fact that opiate medications are being used to provide analgesia adequate to support activities of daily living, not attempting to achieve a specific pain score on the 0-10 Visual Analog Scale. The current opiate medications are providing sufficient analgesia to allow the patient to participate in activities of daily living. The patient is not exhibiting any aberrant behavior suggestive of drug diversion. The patient is not having any adverse reactions to medications. The patient is not suffering from daytime somnolence or mental acuity changes. The patient is managing opiate-induced constipation with appropriate [id number] agents and dietary considerations. The patient was counseled on concern for caution with operating a motor vehicle while using opiate medications. A physical exam was performed and the patient's functional status was evaluated. All patients with back pain were advised against the bed rest greater than 4 days and were advised to return to normal activities. Pain score assessment was noted and the treatment plan was reviewed with the patient. All current medications, both prescribed and OTC were reviewed and reconciled on the electronic medical record. Tobacco screening was accomplished and smoking cessation was advised when indicated. BMI was noted and diet/exercise modification was recommended for all patients following outside normal parameters. [address] [address] PAIN MANAGEMENT CONSULTATION Name: GINO GIMENEZ Room #: REG [facility]#: [id number] Admission: 08/07/19 Attend Phys: Maylin Luna Discharge: Date of : [birth year] Report #: [id number] I reviewed with the patient today their responsibilities to safeguard prescription medications, reviewed their responsibility to utilize medications only as prescribed by the physician. They are to seek and receive pain medications only from 1 physician group ( [facility]). They are to use 1 pharmacy and keep the clinic informed if they change pharmacies. Their responsibilities include making followup visits in a timely fashion and to avoid abrupt discontinuation of medication usage. Their responsibilities further include bringing their medications (bottles from the pharmacy with residual pills) to the visit for possible confirmation of pill counts and the patient understands it is their responsibility to submit to random drug screens to ensure both that the medications prescribed are present, and that no other controlled substances are present. All prescriptions provided today were generated electronically. PLAN: 1. We discussed treatment options with the patient today. The patient finds her medications very beneficial in controlling her pain. She is requesting refills. Her current morphine mEq per day according to the CDC guidelines is 45, well within the limits. The patient is taking appropriately and keeping them safeguarded at all times. We will rewrite her OxyContin 10 mg b.i.d., #60 and OxyIR 5 mg, #45. This is a slight decrease in her breakthrough pain medicine per her request. She is not taking them as often and does not believe she needs 60 for the month. Two months of medications were given to the patient. 2. The patient is not in need of her Movantik which she finds very beneficial for her opioid-induced constipation. She has plenty of refills of that currently as well as her Lidoderm patch. 3. We did discuss when the patient may have another steroid injection from Dr. Jorgito Rocha because she is having her knees injected that plays a part in the amount of steroid she has in total. Her orthopedic doctor told her no injections before 09/28/2019. I did remind her that also we will play a part in when we can give her an injection as well. She will need to decide if she would like her knees injected in September or her back. She verbalizes understanding. 4. The patient is seen today in collaboration with Dr. Cyrus Avalos. The patient will follow up in 2 months or as needed. <ELECTRONICALLY SIGNED> By: Maylin Luna 08/08/19 [id number] Maylin Luna /nt
== END ==
LOC: PAIN 07:06
DX: M54.16 Radiculopathy, lumbar region (principal); M53.3 Sacrococcygeal disorders, not elsewhere classified; G89.29 Other chronic pain